=== PATIENT | female | born 1955 | race Caucasian/White ===

== ENCOUNTER → 2020-10-12 | Outpatient (CLI) | payer OTHER | END | disposition home or self-care (01) | LOC: CT 12:03 | PROVIDERS: ATTEND Nurse Practitioner Primary Care | DX: I10 Essential (primary) hypertension (principal); R29.90 Unspecified symptoms and signs involving the nervous system ==

== ENCOUNTER 2023-10-02 16:55 | Inpatient (IN) | payer OTHER ==
[~2023-10-02] VITALS: Ht 154.9 cm; Wt 53.5 kg
[~2023-10-02 16:55] MED LIST: ASPIRIN CHILDRE81 MG PO; ATORVASTATIN CA40 M1 PO; Humalog SQ; LEVOTHYROXINE75 MCG PO; NATURE'S BLEND F1 MG PO; NATURE'S BLEND100 M2 PO; NICODERM T; VITAMIN B121000 MC3 PO; Vitamin D (50,000 UN PO
[2023-10-02] MEDS ORDERED: DEXTROSE 10 % IN WATER 250 ML IV PRN (18:10)
[2023-10-02] MEDS ORDERED: ASPIRIN, CHEWABLE 81 MG TAB PO ONE (18:20)
[2023-10-02] MEDS ORDERED: Acetaminophen/Hydrocodone 5 MG/325 MG TABLET PO PRN (18:25)
[2023-10-02 18:30] VITALS: BP 149/97
[2023-10-02] MEDS ORDERED: Magnesium Hydroxide 30 ML UDC PO PRN (18:30)
[2023-10-02] MEDS ORDERED: Pantoprazole Sodium 40 MG TAB PO PRN (18:30)
[2023-10-02] MEDS ORDERED: DEXTROSE 10 % IN WATER 250 ML DEHP.FR.BG IV PRN (18:35)
[2023-10-02] MEDS ORDERED: LORazepam 1 MG TAB PO PRN (18:40)
[2023-10-02] MEDS ORDERED: Ziprasidone Mesylate 20 MG VIAL IM PRN (18:40)
[2023-10-02] MEDS ORDERED: ERGOCALCIFEROL 50,000 IU CAP (1.25 MG) PO SCH (19:00)
[2023-10-02] MEDS ORDERED: MG-AL HYDROXIDE/SIMETICONE 30 ML UDC PO PRN (19:50)
[2023-10-02 20:00] VITALS: BP 149/90
[2023-10-02] MEDS ORDERED: Memantine Hydrochloride 5 MG TAB PO SCH (21:00)
[2023-10-02] MEDS ORDERED: DIVALPROEX (DR) 250 MG TAB PO SCH (21:00)
[2023-10-02] MEDS ORDERED: INSULIN LISPRO 1 UNIT/0.01 ML SQ SCH (22:00)
[2023-10-03] MEDS ORDERED: ACETAMINOPHEN 325 MG TAB PO SCH
[2023-10-03] MEDS ORDERED: ACETAMINOPHEN 325 MG TAB PO PRN
[2023-10-03] MEDS ORDERED: Levothyroxine Sodium 75 MCG TAB PO SCH (06:00)
[2023-10-03 06:56] LABS: HEMATOCRIT 28.6 % (37.0-47.0); MEAN CELL VOLUME 112.6 fl (81.0-99.0); MEAN CORPUSCULAR HGB 38.6 pg (27.0-31.0); MEAN CORPUSCULAR HGB CONC 34.3 g/dl (33.0-37.0); MEAN PLATELET VOLUME 10.6 fl (9.6-12.3); PLATELET COUNT AUTOMATED 102 10*3/uL (130-400); RED BLOOD COUNT 2.54 10*6/uL (4.10-5.10); RED CELL DISTRI WIDTH 13.5 % (0-14.5); WHITE BLOOD COUNT 3.1 10*3/uL (4.8-10.8)
[2023-10-03 07:19] LABS: ALKALINE PHOSPHATASE 57 U/L (46-116); BUN 10 mg/dl (9-23); CHLORIDE 103 mmol/L (98-107); CHOLESTEROL 129 mg/dL (<200); LDL CHOLESTEROL 73 mg/dL (9-159); POTASSIUM 3.5 mmol/L (3.4-5.1); TOTAL PROTEIN 6.3 gm/dL (6.0-8.0); TRIGLYCERIDES 104 mg/dl (<150)
[2023-10-03 07:26] LABS: SGPT/ALT < 7 U/L (5-49)
[2023-10-03] MEDS ORDERED: Levothyroxine Sodium 88 MCG TAB PO SCH (07:30)
[2023-10-03 07:37] VITALS: BP 120/59
[2023-10-03 07:49] LABS: MANUAL DIFF REFLEX YES
[2023-10-03 07:53] LABS: BASOPHILS 3 % (0-1); TOTAL CELLS COUNTED 100 #CELLS
[2023-10-03 07:54] LABS: PLATELET SUFFICIENCY LOW (NORMAL)
[2023-10-03 08:33] LABS: VITAMIN D, 25-HYDROXY 16.2 ng/mL (30-100)
[2023-10-03] MEDS ORDERED: FOLIC ACID 1 MG TAB PO SCH (09:00)
[2023-10-03] MEDS ORDERED: MULTIVITAMIN 1 TAB TAB PO SCH (09:00)
[2023-10-03] MEDS ORDERED: Rivastigmine Tartrate 4.6 MG/24 HR PATCH T SCH (09:00)
[2023-10-03] MEDS ORDERED: ATORVASTATIN CALCIUM 40 MG TABLET PO SCH (09:00)
[2023-10-03] MEDS ORDERED: Nicotine 21 MG PATCH T SCH (09:00)
[2023-10-03] MEDS ORDERED: Thiamine 100 MG TAB PO SCH (09:00)
[2023-10-03] MEDS ORDERED: CYANOCOBALAMIN 500 MCG TAB PO SCH (10:00)
[2023-10-03 13:52] VITALS: BP 120/59
[2023-10-03 19:03] VITALS: BP 141/66
[2023-10-04 08:00] VITALS: BP 141/81
[2023-10-04] MEDS ORDERED: LORazepam 0.5 MG TAB PO SCH (09:50)
[2023-10-04] MEDS ORDERED: Memantine Hydrochloride 5 MG TAB PO SCH (09:52)
[2023-10-04] MEDS ORDERED: Water, Sterile 10 ML VIAL ONE ×2 (12:19→22:17)
[2023-10-04 14:00] VITALS: BP 141/81
[2023-10-04 20:00] VITALS: BP 138/89
[2023-10-05 07:53] VITALS: BP 141/70
[2023-10-06 08:30] VITALS: BP 118/66
[2023-10-06] MEDS ORDERED: Rivastigmine Tartrate 9.5 MG/24 HR PATCH T SCH (09:00)
[2023-10-06 20:00] VITALS: BP 138/87
[2023-10-06] MEDS ORDERED: Memantine Hydrochloride 10 MG TAB PO SCH (21:00)
[2023-10-06] MEDS ORDERED: RISPERIDONE 0.5 MG ODT OGT SCH (21:00)
[2023-10-06] MEDS ORDERED: Mirtazapine 15 MG TAB.RAPDIS PO SCH (21:00)
[2023-10-07 05:07] LABS: HBSAG Negative (Negative); HEP B CORE AB, IGM Negative (Negative); HEPATITIS C ANTIBODY Non Reactive (Non Reactive)
[2023-10-07 07:45] VITALS: BP 136/70
[2023-10-07 19:05] VITALS: BP 136/70
[2023-10-07 20:30] VITALS: BP 160/90
[2023-10-08 07:44] VITALS: BP 131/55
[2023-10-08] MEDS ORDERED: RIVASTIGMINE 13.3 MG/24 HR TDM T SCH (09:00)
[2023-10-08 11:32] LABS: BASO % 0.9 % (0.0-1.0); EOS # 0.1 10*3/uL (0.0-0.4); EOS % 3.3 % (1.0-4.0); HEMATOCRIT 30.7 % (37.0-47.0); LYMPH # 0.7 10*3/uL (1.3-4.4); LYMPH % 17.2 % (27.0-41.0); MEAN CELL VOLUME 106.6 fl (81.0-99.0); MEAN CORPUSCULAR HGB 36.5 pg (27.0-31.0); MEAN CORPUSCULAR HGB CONC 34.2 g/dl (33.0-37.0); MEAN PLATELET VOLUME 10.6 fl (9.6-12.3); MONO # 0.4 10*3/uL (0.1-1.0); MONO % 8.2 % (3.0-9.0); NEUT % 70.2 % (47.0-73.0); PLATELET COUNT AUTOMATED 155 10*3/uL (130-400); RED BLOOD COUNT 2.88 10*6/uL (4.10-5.10); RED CELL DISTRI WIDTH 13.7 % (0-14.5); WHITE BLOOD COUNT 4.3 10*3/uL (4.8-10.8)
[2023-10-08 11:49] LABS: BUN 7 mg/dl (9-23); CHLORIDE 100 mmol/L (98-107); POTASSIUM 3.4 mmol/L (3.4-5.1)
[2023-10-08 12:30] LABS: ABG BASE EXCESS 3.9 mmol/L (-2.0-2.0); ARTERIAL BLOOD GAS PH 7.466 (7.35-7.45)
[2023-10-08 20:00] VITALS: BP 129/61
[2023-10-09 08:00] VITALS: BP 107/76
[2023-10-09] MEDS ORDERED: DRONABINOL 2.5 MG CAP PO SCH (16:30)
[2023-10-09 20:00] VITALS: BP 142/57
[2023-10-10 07:29] VITALS: BP 111/58
[2023-10-10] MEDS ORDERED: RISPERIDONE 100 MG/0.28 ML SUSER.SYR SQ SCH (09:00)
[2023-10-10 09:52] LABS: BILIRUBIN Negative (Negative); BLOOD Negative (Negative); CLARITY Clear (Clear); COLOR Dark Yellow (Yellow); GLUCOSE Negative (Negative); KETONE Negative (Negative); LEUKO ESTERASE 1+ (Negative); NITRITE Negative (Negative); PH 6.5 (4.5-8.0)
[2023-10-10 10:51] LABS: BACTERIA 4+
[2023-10-10 20:00] VITALS: BP 152/74
[2023-10-10] MEDS ORDERED: CEFDINIR 300 MG CAP PO SCH (21:00)
[2023-10-11 08:00] VITALS: BP 104/56
[2023-10-11 20:00] VITALS: BP 143/81
[2023-10-12 07:51] VITALS: BP 128/64
[2023-10-12] MEDS ORDERED: AMOXICILLIN500 M3 PO (17:50)
[2023-10-12 20:00] VITALS: BP 130/72
[2023-10-12] MEDS ORDERED: AMOXICILLIN 500 MG CAP PO SCH (22:00)
[2023-10-13 06:21] LABS: BASO # 0.1 10*3/uL (0.0-0.1); BASO % 1.2 % (0.0-1.0); EOS # 0.1 10*3/uL (0.0-0.4); EOS % 2.7 % (1.0-4.0); HEMATOCRIT 31.9 % (37.0-47.0); LYMPH # 1.2 10*3/uL (1.3-4.4); LYMPH % 23.3 % (27.0-41.0); MEAN CELL VOLUME 101.6 fl (81.0-99.0); MEAN CORPUSCULAR HGB 35.4 pg (27.0-31.0); MEAN CORPUSCULAR HGB CONC 34.8 g/dl (33.0-37.0); MONO # 0.6 10*3/uL (0.1-1.0); NEUT # 3.1 10*3/uL (2.3-7.9); NEUT % 61.4 % (47.0-73.0); PLATELET COUNT AUTOMATED 200 10*3/uL (130-400); RED BLOOD COUNT 3.14 10*6/uL (4.10-5.10); RED CELL DISTRI WIDTH 13.6 % (0-14.5); WHITE BLOOD COUNT 5.1 10*3/uL (4.8-10.8)
[2023-10-13 06:22] LABS: BUN 7 mg/dl (9-23); CHLORIDE 102 mmol/L (98-107); POTASSIUM 3.4 mmol/L (3.4-5.1)
[2023-10-13 07:50] VITALS: BP 125/76
[2023-10-13 19:11] VITALS: BP 151/82
[2023-10-14 07:36] VITALS: BP 111/52
[2023-10-14] MEDS ORDERED: Memantine Hydrochloride 5 MG TAB PO SCH (09:00)
[2023-10-14 19:19] VITALS: BP 140/89
[2023-10-14] MEDS ORDERED: RISPERIDONE 0.5 MG ODT OGT SCH (21:00)
[2023-10-15 07:44] VITALS: BP 139/79
[2023-10-15] MEDS ORDERED: Cyproheptadine Hydrochloride 4 MG TAB PO SCH (09:00)
[2023-10-15] MEDS ORDERED: Memantine Hydrochloride 10 MG TAB PO SCH (09:00)
[2023-10-15] MEDS ORDERED: Piperacillin Sodium/Tazobact 4.5 GM in SODIUM CHLORIDE 0.9% 100 ML IV SCH (16:00)
[2023-10-15] MEDS ORDERED: hydrOXYzine hydrochloride 50 MG/ML VIAL IM PRN ×2 (16:05)
[2023-10-15] MEDS ORDERED: hydrOXYzine pamoate 25 MG CAP PO PRN ×2 (16:05)
[2023-10-15 20:00] VITALS: BP 96/60
[2023-10-16 07:45] VITALS: BP 132/65
[2023-10-16 20:00] VITALS: BP 126/67
[2023-10-17 08:00] VITALS: BP 113/49
[2023-10-18 07:54] VITALS: BP 133/54
[2023-10-18 20:00] VITALS: BP 140/59
[2023-10-19 08:00] VITALS: BP 118/92
[2023-10-19 09:27] LABS: BASO % 0.6 % (0.0-1.0); EOS # 0.5 10*3/uL (0.0-0.4); EOS % 6.7 % (1.0-4.0); HEMATOCRIT 34.8 % (37.0-47.0); LYMPH # 2.4 10*3/uL (1.3-4.4); LYMPH % 34.9 % (27.0-41.0); MEAN CELL VOLUME 91.8 fl (81.0-99.0); MEAN CORPUSCULAR HGB 30.3 pg (27.0-31.0); MEAN PLATELET VOLUME 10.9 fl (9.6-12.3); MONO # 0.4 10*3/uL (0.1-1.0); NEUT # 3.5 10*3/uL (2.3-7.9); NEUT % 51.5 % (47.0-73.0); PLATELET COUNT AUTOMATED 263 10*3/uL (130-400); RED BLOOD COUNT 3.79 10*6/uL (4.10-5.10); RED CELL DISTRI WIDTH 14.7 % (0-14.5); WHITE BLOOD COUNT 6.8 10*3/uL (4.8-10.8)
[2023-10-19 10:01] LABS: ALKALINE PHOSPHATASE 49 U/L (46-116); BUN 12 mg/dl (9-23); CHLORIDE 101 mmol/L (98-107); SGPT/ALT 8 U/L (5-49); TOTAL PROTEIN 5.8 gm/dL (6.0-8.0)
[2023-10-19] MEDS ORDERED: AMOXICILLIN 500 MG CAP PO SCH (14:00)
[2023-10-19 20:00] VITALS: BP 108/51
[2023-10-20 08:00] VITALS: BP 126/50
[2023-10-21 07:46] VITALS: BP 133/57
[2023-10-21] MEDS ORDERED: PHARMASSURE V500 MCG PO (09:24)
[2023-10-21] MEDS ORDERED: RISPERIDONE M-0.5 MG OGT (09:24)
[2023-10-21] MEDS ORDERED: NATURE'S BLEND100 M2 PO (09:24)
[2023-10-21] MEDS ORDERED: Vitamin D (50,000 UN PO (09:24)
[2023-10-21] MEDS ORDERED: RIVASTIGMINE1 EAC2 T (09:24)
[2023-10-21] MEDS ORDERED: MEMANTINE HCL10 MG PO (09:24)
[2023-10-21] MEDS ORDERED: NATURE'S BLEND F1 MG PO (09:24)
[2023-10-21] MEDS ORDERED: Synthroid,Levo88 MCG PO (10:32)
[2023-10-22] MEDS ORDERED: ATORVASTATIN CALCIUM 40 MG TABLET PO SCH (10:00)
[2023-10-22] MEDS ORDERED: ASPIRIN, CHEWABLE 81 MG TAB PO SCH (10:00)
== END 2023-10-21 12:03 | disposition home health service (06) | DRG 883 ==
LOC: 3N 16:55
PROVIDERS: Counselor Professional; Internal Medicine; Nurse Practitioner; Registered Nurse; Student in an Organized Health Care Education/Training Program; ADMIT Psychiatry & Neurology Psychiatry; ATTEND Psychiatry & Neurology Psychiatry
PROC: GZHZZZZ Group Psychotherapy (ICD-10-PCS; principal; 2023-10-03)
PROC: GZ51ZZZ Individual Psychotherapy, Behavioral (ICD-10-PCS; 2023-10-03)
PROC: 0HBRXZZ Excision of Toe Nail, External Approach (ICD-10-PCS; 2023-10-04)
PROC: 0HBRXZZ Excision of Toe Nail, External Approach (ICD-10-PCS; 2023-10-04)
PROC: 0HBRXZZ Excision of Toe Nail, External Approach (ICD-10-PCS; 2023-10-04)
PROC: 0HBRXZZ Excision of Toe Nail, External Approach (ICD-10-PCS; 2023-10-04)
PROC: 0HBRXZZ Excision of Toe Nail, External Approach (ICD-10-PCS; 2023-10-04)
PROC: 0HBRXZZ Excision of Toe Nail, External Approach (ICD-10-PCS; 2023-10-04)
PROC: 0HBRXZZ Excision of Toe Nail, External Approach (ICD-10-PCS; 2023-10-04)
PROC: 0HBRXZZ Excision of Toe Nail, External Approach (ICD-10-PCS; 2023-10-04)
PROC: 0HBRXZZ Excision of Toe Nail, External Approach (ICD-10-PCS; 2023-10-04)
PROC: 0HBRXZZ Excision of Toe Nail, External Approach (ICD-10-PCS; 2023-10-04)
DX: F63.81 Intermittent explosive disorder (principal); B95.2 Enterococcus as the cause of diseases classified elsewhere; F02.811 Dementia in other diseases classified elsewhere, unspecified severity, with agitation; N39.0 Urinary tract infection, site not specified; R17 Unspecified jaundice; E03.9 Hypothyroidism, unspecified; G30.9 Alzheimer's disease, unspecified; F10.20 Alcohol dependence, uncomplicated; F02.80 Dementia in other diseases classified elsewhere, unspecified severity, without behavioral disturbance, psychotic disturbance, mood disturbance, and anxiety; I10 Essential (primary) hypertension; E11.69 Type 2 diabetes mellitus with other specified complication; B35.1 Tinea unguium; F17.210 Nicotine dependence, cigarettes, uncomplicated; E53.8 Deficiency of other specified B group vitamins; E55.9 Vitamin D deficiency, unspecified; Z90.49 Acquired absence of other specified parts of digestive tract; Z71.6 Tobacco abuse counseling; Z79.82 Long term (current) use of aspirin; Z79.899 Other long term (current) drug therapy; Z68.22 Body mass index [BMI] 22.0-22.9, adult

== ENCOUNTER 2023-10-23 09:48 | Inpatient (IN) | payer OTHER ==
[~2023-10-23] VITALS: Ht 170.1 cm; Wt 47.5 kg
[~2023-10-23 09:48] MED LIST changes: +AMOXICILLIN500 M3 PO; +MEMANTINE HCL10 MG PO; +PHARMASSURE V500 MCG PO; +RISPERIDONE M-0.5 MG OGT; +RIVASTIGMINE1 EAC2 T; +Synthroid,Levo88 MCG PO
[2023-10-23 09:55] VITALS: BP 132/62
[2023-10-23] MEDS ORDERED: Lactated Ringer's Solution 1,000 ML IV SCH (10:05)
[2023-10-23] MEDS ORDERED: VITAMIN B-1100 M1 PO (10:09)
[2023-10-23] MEDS ORDERED: AMOXICILLIN500 M2 PO (10:10)
[2023-10-23] MEDS ORDERED: LEVOTHYROXINE88 MCG PO (10:10)
[2023-10-23] MEDS ORDERED: MEMANTINE HCL10 MG PO (10:11)
[2023-10-23] MEDS ORDERED: NATURE'S BLEND F1 MG PO (10:12)
[2023-10-23] MEDS ORDERED: VITAMIN D210 MCG PO (10:12)
[2023-10-23] MEDS ORDERED: RISPERIDONE M-0.5 MG PO (10:13)
[2023-10-23] MEDS ORDERED: [UNRECOGNIZED DRUG - OTHER] (10:13)
[2023-10-23] MEDS ORDERED: EXELON1 EAC2 TD (10:14)
[2023-10-23 10:39] LABS: BASO # 0.1 10*3/uL (0.0-0.1); BASO % 0.9 % (0.0-1.0); EOS # 0.7 10*3/uL (0.0-0.4); EOS % 12.2 % (1.0-4.0); HEMATOCRIT 37.4 % (37.0-47.0); LYMPH # 1.1 10*3/uL (1.3-4.4); LYMPH % 19.2 % (27.0-41.0); MEAN CELL VOLUME 97.1 fl (81.0-99.0); MEAN CORPUSCULAR HGB 31.7 pg (27.0-31.0); MEAN CORPUSCULAR HGB CONC 32.6 g/dl (33.0-37.0); MEAN PLATELET VOLUME 10.8 fl (9.6-12.3); MONO # 0.4 10*3/uL (0.1-1.0); NEUT # 3.6 10*3/uL (2.3-7.9); NEUT % 61.5 % (47.0-73.0); PLATELET COUNT AUTOMATED 194 10*3/uL (130-400); RED BLOOD COUNT 3.85 10*6/uL (4.10-5.10); RED CELL DISTRI WIDTH 14.6 % (0-14.5); WHITE BLOOD COUNT 5.8 10*3/uL (4.8-10.8)
[2023-10-23 10:48] LABS: ACT PARTIAL THROMBO TIME 29.9 SECONDS (20.0-32.1)
[2023-10-23 10:59] LABS: ALKALINE PHOSPHATASE 420 U/L (46-116); BUN 13 mg/dl (9-23); CHLORIDE 105 mmol/L (98-107); SGPT/ALT 23 U/L (5-49); TOTAL PROTEIN 6.9 gm/dL (6.0-8.0)
[2023-10-23 11:00] LABS: ETHYL ALCOHOL < 3.0 mg/dl (<3)
[2023-10-23 11:32] LABS: BILIRUBIN 2+ (Negative); BLOOD 1+ (Negative); CLARITY Cloudy (Clear); COLOR Orange (Yellow); GLUCOSE Negative (Negative); KETONE Trace (Negative); LEUKO ESTERASE 2+ (Negative); NITRITE Positive (Negative); PH 5.5 (4.5-8.0); SPECIFIC GRAVITY 1.025 (1.001-1.030)
[2023-10-23 11:42] LABS: URINE AMPHETAMINES Negative (1000ng/ml); URINE BARBITURATES Negative (200ng/ml); URINE BENZODIAZEPINES Negative (200ng/ml); URINE CANNABINOIDS (THC) Positive (50ng/ml); URINE COCAINE Negative (300ng/ml); URINE METHADONE Negative (300ng/ml); URINE OPIATES Negative (300ng/ml); URINE PHENCYCLIDINE Negative (25ng/ml)
[2023-10-23] MEDS ORDERED: BISACODYL 5 MG TAB PO PRN (12:05)
[2023-10-23] MEDS ORDERED: BISACODYL 10 MG SUPP R PRN (12:05)
[2023-10-23] MEDS ORDERED: ACETAMINOPHEN 325 MG TAB PO PRN (12:05)
[2023-10-23 12:10] LABS: BACTERIA 1+; EPITHELIAL CELLS TNTC; MUCOUS 2+; WBC 31-40 wbc/hpf (0-5)
[2023-10-23] MEDS ORDERED: SODIUM CHLORIDE 0.9% 1,000 ML IV ONE (13:45)
[2023-10-23] MEDS ORDERED: LINEZOLID 300 ML IV SCH (14:00)
[2023-10-23] MEDS ORDERED: POTASSIUM CHLORIDE IN WATER 100 ML IV SCH (14:00)
[2023-10-23 14:15] VITALS: BP 143/790
[2023-10-23 16:00] VITALS: BP 156/74
[2023-10-23] MEDS ORDERED: Ceftriaxone Sodium 1 GM in SYRINGE INFUSION 10 ML IV SCH (16:00)
[2023-10-23] MEDS ORDERED: FOAM BANDAGE 1 EACH BANDAGE T ONE (18:11)
[2023-10-23] MEDS ORDERED: HEEL PROTECTOR DEVICE ONE (18:11)
[2023-10-23 20:00] VITALS: BP 163/76
[2023-10-23] MEDS ORDERED: RISPERIDONE 0.5 MG ODT BC SCH (22:00)
[2023-10-23] MEDS ORDERED: Memantine Hydrochloride 10 MG TAB PO SCH (22:00)
[2023-10-24] VITALS: BP 140/63
[2023-10-24 06:46] LABS: BASO # 0.1 10*3/uL (0.0-0.1); BASO % 1.1 % (0.0-1.0); EOS # 0.6 10*3/uL (0.0-0.4); HEMATOCRIT 33.2 % (37.0-47.0); LYMPH # 1.1 10*3/uL (1.3-4.4); LYMPH % 20.4 % (27.0-41.0); MEAN CELL VOLUME 96.2 fl (81.0-99.0); MEAN CORPUSCULAR HGB 32.2 pg (27.0-31.0); MEAN CORPUSCULAR HGB CONC 33.4 g/dl (33.0-37.0); MEAN PLATELET VOLUME 11.1 fl (9.6-12.3); MONO # 0.3 10*3/uL (0.1-1.0); MONO % 6.3 % (3.0-9.0); NEUT # 3.1 10*3/uL (2.3-7.9); PLATELET COUNT AUTOMATED 151 10*3/uL (130-400); RED BLOOD COUNT 3.45 10*6/uL (4.10-5.10); RED CELL DISTRI WIDTH 14.3 % (0-14.5); WHITE BLOOD COUNT 5.2 10*3/uL (4.8-10.8)
[2023-10-24 07:14] LABS: BUN 8 mg/dl (9-23); CHLORIDE 104 mmol/L (98-107); FREE T4 1.14 ng/dl (0.89-1.76)
[2023-10-24 08:00] VITALS: BP 127/60
[2023-10-24] MEDS ORDERED: Enoxaparin Sodium 40 MG/0.4 ML SYR SC SCH (10:00)
[2023-10-24] MEDS ORDERED: RIVASTIGMINE 13.3 MG/24 HR TDM T SCH (10:00)
[2023-10-24] MEDS ORDERED: Thiamine 100 MG TAB PO SCH (10:00)
[2023-10-24 12:00] VITALS: BP 131/64
[2023-10-24] MEDS ORDERED: POTASSIUM CHLORIDE IN WATER 100 ML IV SCH (12:00)
[2023-10-24] MEDS ORDERED: Menthol/Zinc Oxide 4 GM THIN T SCH (12:15)
[2023-10-24 16:00] VITALS: BP 133/63
[2023-10-24 20:00] VITALS: BP 127/51
[2023-10-25] VITALS: BP 148/72
[2023-10-25 06:12] LABS: BASO # 0.1 10*3/uL (0.0-0.1); BASO % 0.9 % (0.0-1.0); EOS # 0.5 10*3/uL (0.0-0.4); EOS % 8.3 % (1.0-4.0); LYMPH % 17.6 % (27.0-41.0); MEAN CELL VOLUME 95.6 fl (81.0-99.0); MEAN CORPUSCULAR HGB CONC 33.4 g/dl (33.0-37.0); MEAN PLATELET VOLUME 11.4 fl (9.6-12.3); MONO # 0.4 10*3/uL (0.1-1.0); MONO % 6.7 % (3.0-9.0); NEUT # 3.8 10*3/uL (2.3-7.9); NEUT % 66.2 % (47.0-73.0); PLATELET COUNT AUTOMATED 178 10*3/uL (130-400); RED BLOOD COUNT 3.66 10*6/uL (4.10-5.10); RED CELL DISTRI WIDTH 14.6 % (0-14.5); WHITE BLOOD COUNT 5.8 10*3/uL (4.8-10.8)
[2023-10-25 07:20] LABS: BUN 6 mg/dl (9-23); CHLORIDE 101 mmol/L (98-107); POTASSIUM 3.4 mmol/L (3.4-5.1)
[2023-10-25 08:00] VITALS: BP 137/52
[2023-10-25] MEDS ORDERED: Enoxaparin Sodium 30 MG/0.3 ML SYR SC SCH (10:00)
[2023-10-25] MEDS ORDERED: AQUAPHOR OINTMENT Base 50 GM TUBE T SCH (10:00)
[2023-10-25] MEDS ORDERED: MAGNESIUM SULFATE 50 ML IV ONE (11:00)
[2023-10-25 12:00] VITALS: BP 137/63
[2023-10-25 16:00] VITALS: BP 167/65
[2023-10-25 20:00] VITALS: BP 162/62
[2023-10-26] VITALS: BP 164/62
[2023-10-26 06:09] LABS: BASO # 0.1 10*3/uL (0.0-0.1); EOS # 0.4 10*3/uL (0.0-0.4); EOS % 7.1 % (1.0-4.0); LYMPH # 1.3 10*3/uL (1.3-4.4); LYMPH % 25.6 % (27.0-41.0); MEAN CELL VOLUME 96.7 fl (81.0-99.0); MEAN CORPUSCULAR HGB CONC 33.1 g/dl (33.0-37.0); MEAN PLATELET VOLUME 11.2 fl (9.6-12.3); MONO # 0.5 10*3/uL (0.1-1.0); MONO % 9.1 % (3.0-9.0); NEUT # 2.9 10*3/uL (2.3-7.9); NEUT % 56.6 % (47.0-73.0); PLATELET COUNT AUTOMATED 188 10*3/uL (130-400); RED BLOOD COUNT 3.62 10*6/uL (4.10-5.10); RED CELL DISTRI WIDTH 14.5 % (0-14.5)
[2023-10-26 07:32] LABS: CHLORIDE 101 mmol/L (98-107); POTASSIUM 3.6 mmol/L (3.4-5.1)
[2023-10-26 07:33] LABS: BUN < 5 mg/dl (9-23)
[2023-10-26 08:00] VITALS: BP 153/72
[2023-10-26] MEDS ORDERED: Levothyroxine Sodium 88 MCG TAB PO SCH (10:00)
[2023-10-26 11:42] VITALS: BP 153/68
[2023-10-26 15:35] VITALS: BP 157/66
[2023-10-26 18:00] VITALS: BP 154/72
[2023-10-26 20:00] VITALS: BP 154/72
[2023-10-27 00:07] VITALS: BP 158/88
[2023-10-27 08:00] VITALS: BP 147/65
[2023-10-27 12:00] VITALS: BP 149/74
[2023-10-27 16:00] VITALS: BP 169/95
[2023-10-27 20:00] VITALS: BP 150/60; BP 156/75
[2023-10-28 00:13] VITALS: BP 148/72
[2023-10-28 08:00] VITALS: BP 141/61
[2023-10-28 12:00] VITALS: BP 93/52
[2023-10-28 16:00] VITALS: BP 132/65
[2023-10-28 20:00] VITALS: BP 114/55
[2023-10-29] VITALS: BP 116/80
[2023-10-29 08:55] VITALS: BP 142/66
[2023-10-29 12:10] VITALS: BP 145/70
[2023-10-29 12:12] VITALS: BP 145/70
== END 2023-10-29 13:33 | DRG 640 ==
LOC: ED 09:48 → 4E 11:34 → EDHOLD 11:34 → 4E 14:33
PROVIDERS: Emergency Medicine; Family Medicine; ADMIT Internal Medicine; ATTEND Internal Medicine
DX: E87.6 Hypokalemia (principal); G93.41 Metabolic encephalopathy; N39.0 Urinary tract infection, site not specified; R47.01 Aphasia; E44.1 Mild protein-calorie malnutrition; F03.918 Unspecified dementia, unspecified severity, with other behavioral disturbance; Z68.1 Body mass index [BMI] 19.9 or less, adult; E80.6 Other disorders of bilirubin metabolism; R62.7 Adult failure to thrive; R59.0 Localized enlarged lymph nodes; I10 Essential (primary) hypertension; E03.9 Hypothyroidism, unspecified; E53.8 Deficiency of other specified B group vitamins; E55.9 Vitamin D deficiency, unspecified; F10.10 Alcohol abuse, uncomplicated; E11.65 Type 2 diabetes mellitus with hyperglycemia; R31.9 Hematuria, unspecified; Z79.82 Long term (current) use of aspirin; Z79.899 Other long term (current) drug therapy; Z90.49 Acquired absence of other specified parts of digestive tract